=== PATIENT | male | born 1950 | race Caucasian/White ===

== ENCOUNTER 2021-03-06 10:03 | Inpatient (IN) | payer MEDICARE ==
[2021-03-06 10:39] LABS: Hemoglobin 13.4 g/dL (13.5-17.5); Mean Corpuscular HGB CONC 34.2 g/dL (32.0-36.0); Mean Corpuscular Hemoglobin 30.4 pg (27.0-33.0); Mean Corpuscular Volume 88.9 fl (81.2-95.1); Mean Platelet Volume 8.8 fl (7.4-10.4); Platelet Count 263 10x3/uL (150-450); RBC Distribution Width 12.7 % (11.5-14.5); Red Blood Cell (RBC) Count 4.41 10x6/uL (4.32-5.72); White Blood Cell (WBC) Count 24.7 10x3/uL (3.5-10.5)
[2021-03-06 10:59] LABS: MDiff Complete? YES
[2021-03-06] MEDS ORDERED: Ventolin HFA Inhaler 60 PUFF INHALER ONE (10:59)
[2021-03-06 11:00] LABS: ALT (SGPT) 22 U/L (8-55); AST (SGOT) 20 U/L (5-34); Albumin 3.2 g/dL (3.4-4.8); Alkaline Phosphatase 102 U/L (40-110); Anion Gap 14 mmol/L (10-20); BUN (Urea Nitrogen) 11 mg/dL (8.4-25.7); Bilirubin, Total 0.9 mg/dL (0.2-1.2); Calc. Creatinine Clearance 0 mL/min (70-130); Calcium 8.3 mg/dL (7.8-10.44); Carbon Dioxide 29 mmol/L (23-31); Chloride 82 mmol/L (98-107); Globulin 2.8 g/dL (2.4-3.5); Glucose 172 mg/dL (83-110); Potassium 4.6 mmol/L (3.5-5.1); Sodium 120 mmol/L (136-145)
[2021-03-06] MEDS ORDERED: Magnesium 2 GM/50 ML BAG (IN WATER) ONE (11:01)
[2021-03-06] MEDS ORDERED: methylPREDNISolone Sod Succ/PF 125 MG/2 ML VIAL ONE (11:01)
[2021-03-06] MEDS ORDERED: cefTRIAXone\\ROCEPHIN 2 GM VIAL ONE (11:02)
[2021-03-06 11:13] LABS: Actual Bicarbonate (HCO3a) 30.9 mEq/L (22-28); Base Excess (BEa) 4.1 mEq/L (-2.0 to +3.0); CO2 Tension 55.9 mmHg (35.0-45.0); Calcium, Ionized (arterial) 1.08 mmol/L (1.12-1.30); Carboxyhemoglobin (COHb) 5.5 gm% (0.0-3.0); Hemoglobin (Hb) 13.6 g/dL (14.0-18.0); O2 Tension (PaO2), arterial 87.8 mmHg (> 70.0); Potassium - ABG Lab 4.5 mmol/L (3.70-5.30); Puncture Site RRA; pH, Arterial 7.36 (7.35-7.45)
[2021-03-06 11:13] LABS: D-Dimer Test 0.37 mg/L FEU (0.19-0.50); INR-International Normal Ratio 3.2; PTT 47.1 sec (22.0-33.0); Prothrombin Time 33.7 sec (9.5-12.1)
[2021-03-06 11:16] LABS: ALV-art Gradient 41.965 mmHg (0-20)
[2021-03-06 11:20] LABS: Band 11 % (5-11); Lymphocytes 2 % (21-51); Monocytes 5 % (0-10); Neutrophil 82 % (42-75)
[2021-03-06 11:21] LABS: Platelet Morphology Comment Appears Adequate
[2021-03-06 11:23] LABS: CKMB 5.1 ng/mL (0-6.6)
[2021-03-06 11:27] LABS: Digoxin 1.28 ng/mL (0.8-2.0)
[2021-03-06] MEDS ORDERED: Doxycycline 100 MG CAP PO SCH (11:45)
[2021-03-06] MEDS ORDERED: Morphine 4 MG/ML VIAL ONE (11:52)
[2021-03-06] MEDS ORDERED: HYDROcodone/Acetaminophen 5/325 mg Tablet PO PRN (12:24)
[2021-03-06] MEDS ORDERED: Guaifenesin DM 100-10/5 ML UDCUP PO PRN (12:24)
[2021-03-06] MEDS ORDERED: HYDROcodone/Acetaminophen 10/325 mg Tablet PO PRN (12:24)
[2021-03-06] MEDS ORDERED: Acetaminophen 325 MG TAB PO PRN (12:24)
[2021-03-06 13:15] LABS: Troponin I 0.023 ng/mL (< 0.028)
[2021-03-06 16:17] LABS: Troponin I 0.014 ng/mL (< 0.028)
[2021-03-06] MEDS ORDERED: Carvedilol 3.125 MG TAB PO SCH (17:00)
[2021-03-06] MEDS ORDERED: Warfarin Sodium 5 MG TAB PO SCH (17:00)
[2021-03-06 18:26] LABS: SARS-CoV-2 NAA Rapid Test Not Detected (NotDetected)
[2021-03-06] MEDS: Sodium Chloride 0.9% 1,000 ML IV SCH (19:51)
[2021-03-06] MEDS: methylPREDNISolone Sod Succ 40 MG VIAL IVP SCH (19:51)
[2021-03-06] MEDS: Famotidine 20 MG TAB PO SCH (21:46)
[2021-03-06] MEDS: Carvedilol 3.125 MG TAB PO SCH (21:47)
[2021-03-06] MEDS: Atorvastatin Calcium 10 MG TAB PO SCH (22:00)
[2021-03-06] MEDS: Hydroxychloroquine Sulfate 200 MG TAB PO SCH (22:00)
[2021-03-06] MEDS ORDERED: ALPRAZolam 0.5 MG TAB PO PRN (23:02)
[2021-03-06] MEDS: Doxycycline 100 MG CAP PO SCH (23:30)
[2021-03-07] MEDS: Mometasone/Formoterol 200/5 60 PUFF INH SCH ×3 (00:55→18:57)
[2021-03-07] MEDS: methylPREDNISolone Sod Succ 40 MG VIAL IVP SCH ×4 (01:00→17:59)
[2021-03-07 01:10] LABS: Bilirubin Neg (Negative); Blood, Urine 10 (Negative); Clarity Slightly Cloudy (Clear); Glucose, Urine (Dipstick) >=1000 mg/dL (Negative); Ketone, Urine Negative (Negative); Leukocyte Negative (Negative); Nitrite Negative (Negative); Protein, Urine (Dipstick) 30 mg/dl (Neg-Trace); Specific Gravity, Urine 1.025 (1.002-1.036)
[2021-03-07 01:19] LABS: Bacteria/HPF None Seen HPF (None Seen); Oval Fat Bodies/HPF Rare HPF (None Seen); Squamous Epithelial 0-3 HPF (0-3); WBC/HPF 0-3 HPF (0-3)
[2021-03-07] MEDS: Sodium Chloride 0.9% 1,000 ML IV SCH ×2 (03:00→17:58)
[2021-03-07 05:10] LABS: Hemoglobin 12.4 g/dL (13.5-17.5); Mean Corpuscular HGB CONC 33.9 g/dL (32.0-36.0); Mean Corpuscular Hemoglobin 30.1 pg (27.0-33.0); Mean Corpuscular Volume 88.8 fl (81.2-95.1); Mean Platelet Volume 9.4 fl (7.4-10.4); Platelet Count 225 10x3/uL (150-450); RBC Distribution Width 12.9 % (11.5-14.5); Red Blood Cell (RBC) Count 4.12 10x6/uL (4.32-5.72); White Blood Cell (WBC) Count 20.9 10x3/uL (3.5-10.5)
[2021-03-07 05:14] LABS: Anion Gap 12 mmol/L (10-20); BUN (Urea Nitrogen) 11 mg/dL (8.4-25.7); Calc. Creatinine Clearance 113 mL/min (70-130); Calcium 8.4 mg/dL (7.8-10.44); Carbon Dioxide 30 mmol/L (23-31); Chloride 85 mmol/L (98-107); Glucose 159 mg/dL (83-110); Potassium 4.8 mmol/L (3.5-5.1); Sodium 122 mmol/L (136-145)
[2021-03-07 05:20] LABS: MDiff Complete? YES
[2021-03-07 05:29] LABS: Band 9 % (5-11); Lymphocytes 3 % (21-51); Monocytes 6 % (0-10); Neutrophil 82 % (42-75)
[2021-03-07 05:31] LABS: Large Platelets SLIGHT
[2021-03-07 05:38] LABS: Prothrombin Time 44.4 sec (9.5-12.1)
[2021-03-07 05:48] LABS: INR-International Normal Ratio 4.3
[2021-03-07] MEDS ORDERED: Leflunomide 10 mg Tablet PO SCH ×2 (09:00)
[2021-03-07] MEDS: Digoxin 0.25 MG TAB PO SCH (09:36)
[2021-03-07] MEDS: Famotidine 20 MG TAB PO SCH ×2 (09:36→21:16)
[2021-03-07] MEDS: Doxycycline 100 MG CAP PO SCH ×2 (09:36→21:16)
[2021-03-07] MEDS: Cholecalciferol 1,000 UNITS (25 MCG) TAB PO SCH (09:37)
[2021-03-07] MEDS: Hydroxychloroquine Sulfate 200 MG TAB PO SCH ×2 (09:37→21:16)
[2021-03-07] MEDS: Carvedilol 3.125 MG TAB PO SCH ×2 (09:37→21:16)
[2021-03-07] MEDS: Aspirin 81 mg Enteric Coated Tablet PO SCH (09:38)
[2021-03-07] MEDS ORDERED: Nicotine 21 MG PATCH TD SCH (11:00)
[2021-03-07] MEDS: cefTRIAXone\\ROCEPHIN 2 GM in Sodium Chloride 0.9% 100 ML IVPB SCH (11:59)
[2021-03-07 14:02] LABS: Legionella Urinary Ag Negative (Negative); Strep pneumo Urine Ag NEGATIVE (NEGATIVE)
[2021-03-07] MEDS ORDERED: Warfarin Sodium 2.5 MG TAB PO SCH (17:00)
[2021-03-07] MEDS: Atorvastatin Calcium 10 MG TAB PO SCH (21:16)
[2021-03-08] MEDS: methylPREDNISolone Sod Succ 40 MG VIAL IVP SCH ×4 (02:01→21:48)
[2021-03-08 07:10] LABS: Hemoglobin 12.3 g/dL (13.5-17.5); Mean Corpuscular HGB CONC 33.8 g/dL (32.0-36.0); Mean Corpuscular Hemoglobin 30.6 pg (27.0-33.0); Mean Corpuscular Volume 90.5 fl (81.2-95.1); Mean Platelet Volume 9.8 fl (7.4-10.4); Platelet Count 217 10x3/uL (150-450); RBC Distribution Width 12.8 % (11.5-14.5); Red Blood Cell (RBC) Count 4.02 10x6/uL (4.32-5.72); White Blood Cell (WBC) Count 24.9 10x3/uL (3.5-10.5)
[2021-03-08 07:12] LABS: INR-International Normal Ratio 2.4; Prothrombin Time 25.3 sec (9.5-12.1)
[2021-03-08] MEDS: Mometasone/Formoterol 200/5 60 PUFF INH SCH ×2 (07:16→19:35)
[2021-03-08 07:31] LABS: Anion Gap 10 mmol/L (10-20); BUN (Urea Nitrogen) 14 mg/dL (8.4-25.7); Calc. Creatinine Clearance 115 mL/min (70-130); Calcium 8.3 mg/dL (7.8-10.44); Carbon Dioxide 29 mmol/L (23-31); Chloride 88 mmol/L (98-107); Glucose 119 mg/dL (83-110); Magnesium 2.2 mg/dL (1.6-2.6); Potassium 5.3 mmol/L (3.5-5.1); Sodium 122 mmol/L (136-145)
[2021-03-08 08:00] LABS: MDiff Complete? YES
[2021-03-08 08:03] LABS: Band 11 % (5-11); Lymphocytes 3 % (21-51); Monocytes 6 % (0-10); Neutrophil 80 % (42-75)
[2021-03-08 08:05] LABS: Platelet Morphology Comment Appears Adequate
[2021-03-08] MEDS: Aspirin 81 mg Enteric Coated Tablet PO SCH (10:02)
[2021-03-08] MEDS: Digoxin 0.25 MG TAB PO SCH (10:02)
[2021-03-08] MEDS: Hydroxychloroquine Sulfate 200 MG TAB PO SCH ×2 (10:03→21:48)
[2021-03-08] MEDS: Doxycycline 100 MG CAP PO SCH ×2 (10:03→21:48)
[2021-03-08] MEDS: Famotidine 20 MG TAB PO SCH ×2 (10:03→21:48)
[2021-03-08] MEDS: Cholecalciferol 1,000 UNITS (25 MCG) TAB PO SCH (10:03)
[2021-03-08] MEDS: Carvedilol 3.125 MG TAB PO SCH ×2 (10:03→21:48)
[2021-03-08] MEDS ORDERED: Nicotine 21 MG PATCH TD SCH (11:15)
[2021-03-08] MEDS: cefTRIAXone\\ROCEPHIN 2 GM in Sodium Chloride 0.9% 100 ML IVPB SCH (11:32)
[2021-03-08] MEDS: ALPRAZolam 0.5 MG TAB PO PRN (11:32)
[2021-03-08] MEDS ORDERED: Warfarin Sodium 5 MG TAB PO SCH (17:00)
[2021-03-08] MEDS: Atorvastatin Calcium 10 MG TAB PO SCH (21:48)
[2021-03-09] MEDS: ALPRAZolam 0.5 MG TAB PO PRN (01:43)
[2021-03-09 05:22] LABS: #Monocytes 0.9 10x3/uL (0.0-1.1); #Neutrophils 17.8 10x3/uL (1.5-8.4); %Basophils 0.1 % (0.0-2.0); %Eosinophils 0.1 % (0.0-6.0); %Lymphocytes 2.9 % (18.0-47.0); %Monocytes 4.5 % (0.0-10.0); %Neutrophils 91.8 % (40.0-75.0); Hemoglobin 12.6 g/dL (13.5-17.5); Mean Corpuscular HGB CONC 33.4 g/dL (32.0-36.0); Mean Corpuscular Hemoglobin 29.9 pg (27.0-33.0); Mean Corpuscular Volume 89.5 fl (81.2-95.1); Mean Platelet Volume 9.2 fl (7.4-10.4); Platelet Count 260 10x3/uL (150-450); RBC Distribution Width 12.8 % (11.5-14.5); Red Blood Cell (RBC) Count 4.21 10x6/uL (4.32-5.72); White Blood Cell (WBC) Count 19.4 10x3/uL (3.5-10.5)
[2021-03-09 05:32] LABS: INR-International Normal Ratio 1.8; Prothrombin Time 19.5 sec (9.5-12.1)
[2021-03-09 05:34] LABS: Anion Gap 12 mmol/L (10-20); BUN (Urea Nitrogen) 17 mg/dL (8.4-25.7); Calc. Creatinine Clearance 101 mL/min (70-130); Calcium 8.4 mg/dL (7.8-10.44); Carbon Dioxide 31 mmol/L (23-31); Chloride 87 mmol/L (98-107); Glucose 115 mg/dL (83-110); Potassium 5.4 mmol/L (3.5-5.1); Sodium 125 mmol/L (136-145)
[2021-03-09] MEDS: methylPREDNISolone Sod Succ 40 MG VIAL IVP SCH (06:04)
[2021-03-09] MEDS: Carvedilol 3.125 MG TAB PO SCH (08:31)
[2021-03-09] MEDS: Digoxin 0.25 MG TAB PO SCH (08:31)
[2021-03-09] MEDS: Famotidine 20 MG TAB PO SCH (08:31)
[2021-03-09] MEDS: Hydroxychloroquine Sulfate 200 MG TAB PO SCH (08:31)
[2021-03-09] MEDS: Aspirin 81 mg Enteric Coated Tablet PO SCH (08:31)
[2021-03-09] MEDS: Cholecalciferol 1,000 UNITS (25 MCG) TAB PO SCH (08:31)
[2021-03-09] MEDS: Doxycycline 100 MG CAP PO SCH (08:31)
[2021-03-09] MEDS: Mometasone/Formoterol 200/5 60 PUFF INH SCH (09:28)
[2021-03-09 10:47] VITALS: BMI 23.8
[2021-03-09 12:05] VITALS: TEMP 97.5
[2021-03-09 13:23] VITALS: BP 149/83
[2021-03-09] MEDS ORDERED: Warfarin Sodium 2.5 MG TAB PO SCH (17:00)
== END 2021-03-09 14:10 | disposition home or self-care (01) | DRG 189 ==
LOC: CSHERS 10:03 → SUATTDRO 10:03 → CSHERHOLD 12:38 → CSHTELE 15:19
PROVIDERS: ADMIT Family Medicine; ATTEND Hospitalist
DX: J96.02 Acute respiratory failure with hypercapnia (principal); J44.1 Chronic obstructive pulmonary disease with (acute) exacerbation; R65.10 Systemic inflammatory response syndrome (SIRS) of non-infectious origin without acute organ dysfunction; I48.20 Chronic atrial fibrillation, unspecified; I50.22 Chronic systolic (congestive) heart failure; E87.1 Hypo-osmolality and hyponatremia; Z20.822 Contact with and (suspected) exposure to COVID-19; M06.9 Rheumatoid arthritis, unspecified; I10 Essential (primary) hypertension; E78.5 Hyperlipidemia, unspecified; I25.10 Atherosclerotic heart disease of native coronary artery without angina pectoris; F17.210 Nicotine dependence, cigarettes, uncomplicated; Z79.01 Long term (current) use of anticoagulants; Z79.82 Long term (current) use of aspirin; Z79.899 Other long term (current) drug therapy; Z82.3 Family history of stroke; D72.9 Disorder of white blood cells, unspecified; R77.8 Other specified abnormalities of plasma proteins; Z71.6 Tobacco abuse counseling; R79.1 Abnormal coagulation profile
CPT/HCPCS: 0240U; 36415; 36600; 71045; 71046; 80048; 80053; 80162; 81001; 82553; 82805; 83605; 83735; 83880; 83930; 83935; 84145; 84300; 84484; 84560; 85025; 85379; 85610; 85730; 87040; 87070; 87086; 87205; 87449; 87899; 93005; 94640; 94760; 96365; 96366; 96367; 96375; J0696; J2270; J2920; J2930; J3475; J3490; J7050; J7620; U0002; U0005

== ENCOUNTER 2021-11-09 11:26 | Outpatient (CLI) | payer MEDICARE ==
[2021-11-09 23:48] LABS: SARS-CoV-2 PCR by NAA Not Detected (NotDetected)
== END 2021-11-09 11:27 | disposition home or self-care (01) ==
LOC: CSHLAB 11:26
PROVIDERS: ATTEND Internal Medicine
DX: Z20.822 Contact with and (suspected) exposure to COVID-19 (principal)
CPT/HCPCS: U0003; U0005